=== PATIENT | female | born 1990 ===

== ENCOUNTER → 2021-12-02 07:04 | Outpatient (CLI) | payer OTHER, MEDICAID, SELFPAY ==
[2021-12-02 19:45] LABS: COVID19 - ORCAS (NP or Nasal) Negative (Negative)
== END ==
PROVIDERS: Visit Provider Physician Assistant
DX: Z20.822 Contact with and (suspected) exposure to COVID-19 (principal)
CPT/HCPCS: C9803; U0003

== ENCOUNTER → 2024-05-28 14:23 | Outpatient (CLI) | payer OTHER, SELFPAY ==
[2024-05-31 14:09] LABS: HSV 1 DNA Positive (Negative); HSV 2 DNA Negative (Negative)
== END ==
PROVIDERS: PCP Physician Assistant; Visit Provider Nurse Practitioner Adult Health
DX: N90.89 Other specified noninflammatory disorders of vulva and perineum (principal)
CPT/HCPCS: 87529

== ENCOUNTER → 2024-11-21 08:25 | Outpatient (CLI) | payer OTHER, SELFPAY | PROVIDERS: PCP Physician Assistant; Visit Provider Physician Assistant Medical | DX: N39.0 Urinary tract infection, site not specified (principal) | CPT/HCPCS: 87086 ==